=== PATIENT | female | born 1955 | race Caucasian/White ===

== ENCOUNTER → 2018-10-25 16:03 | Outpatient (CLI) | payer MEDICARE, MEDICAID, SELFPAY ==
[2015-02-20 22:17] VITALS: BMI 21.5
--- NOTE | 2018-10-25 | ASPS_PTH ---
PATIENT: WALLY GROVES LOC: [facility] U#:[id number] AGE/SX: 70/F ROOM: RE10/25/[address]: Dr. Candido Hughes MD : [id number] BED: DIS: SPEC #: [id number] RECD: 10/25/18 15:32 STATUS: ROXY JANGParesh #: [id number] NEYDA: 10/25/18 00:[address]: Candido Hughes DEPT: CYTOLOGY RECD BY: Aleksandr Sy Tissues: Right breast, NOS Procedures: Special Stain Group II Cytospin Fluid Cytology Other HEADER OPERATION: Right breast aspirate, ultrasound-guided PRE-OP DIAGNOSIS: Abnormal mammogram TISSUE SUBMITTED: Right breast aspirate DIAGNOSIS CYTOLOGY Fine needle aspiration, right breast (smears): Acellular specimen. See comment. AM:myriam 10/29/18 COMMENT The specimen is insufficient for further evaluation. Clinical correlation is suggested. CYTOLOGY STUDY Slides are reviewed. CYTOLOGY GROSS Received are two smears labeled with the patient's name and designated per the requisition as right breast aspirate. Submitted for staining. 10/26/18 TC:5 CPT: 46184
== END ==
PROVIDERS: Referring Provider Surgery; Visit Provider Surgery
DX: R92.8 Other abnormal and inconclusive findings on diagnostic imaging of breast (principal)
CPT/HCPCS: 88108; 88161; 88305; 88313